=== PATIENT | male | born 1990 | race Two or more races ===

== ENCOUNTER 2025-01-10 09:51 | Inpatient (IN) | payer OTHER, MEDICAID ==
[~2025-01-10] VITALS: Ht 172.7 cm; Wt 91.6 kg
--- NOTE | 2025-01-10 12:26 | ED.PDOC ---
HPI Comments PMHx:Bipolar Disorder, Schizophrenic SHx:Denies any Pt has not taken Seroquel medication x4 months, Needs Latuda to sleep HPI: Poor Historian. 34-year-old male brought in from long-term accompanied by deputy officer for evaluation of elevated blood pressure. They said they can not help him there so they sent him to the ER. Patient was already in handcuffs. Patient according to the officer was arrested this morning for tear was threats. REVIEW OF SYSTEMS: CONSTITUTIONAL: Denies acute: fever, diaphoresis, chills, HEAD: Denies acute: headache, photophobia Eyes: Denies acute: Double vision, vision loss, eye pain, eye discharge. EARS: Denies acute: tinnitus, hearing loss, ear discharge, ear pain, THROAT: Denies acute: sore throat, swelling, difficulty swallowing , pain with swallowing, change in voice. NECK: Denies acute: neck pain, neck swelling, stiff neck. HEART: Denies acute : chest pain, palpitations, LUNGS: Denies acute: SOB, wheezing, cough, hemoptysis ABDOMEN: Denies acute: abdominal pain, Nausea, Vomiting, diarrhea, melena , hematemesis, hematochezia SKIN: Denies acute: rash, redness, lesions, itchiness. EXTREMITIES: Denies acute: calf pain, numbness, tingling, weakness, denies pain in extremity. Denies acute: Low back pain. Neuro: Denies acute: focal neurological deficit, motor or sensory focal neurological deficit, tremors, seizure like activity, confusion, dizziness, change in mental status, loss of bowel or bladder function, cauda equina like symptoms. : Denies acute: dysuria, hematuria, flank pain, increase in urinary frequency. PSYCH: Denies acute: hallucination, suicidal ideation, homicidal ideation. PHYSICAL EXAM: General: ----mild----acute distress, awake and alert. Head: normocephalic, atraumatic. Neck: supple, trachea is midline, no swelling. Throat: Normal phonation. Eyes:, no erythema, no purulent discharge, no proptosis, no icterus. Heart: regular rate, regular rhythm, no significant murmur appreciated. Lungs: no apparent respiratory distress, Able to speak in full sentences. No wheezing, no rhonchi, no crackles. No stridors Clear to auscultation bilaterally. Abdomen: non tender to palpation, non distended, soft, no guarding, no rebound, + bowel sounds. Neuro: Awake, Alert, oriented to name, self, situation, follows commands GCS=15. Speech is normal. Skin: no petechia, no purpura, no cyanosis, non-pale, not jaundice. Lower extremities: --no - Pitting edema no deformity, no focal swelling, no calf TTP. Makes eye contact. moves all four extremities. Face: no apparent facial droop. ED COURSE: Chief Complaint: High Blood Pressure Time Seen by MD: 12:20 Primary Care Provider: UNKNOWN Reviewed Notes: Nurses Notes, Medications, Allergies Allergies: Uncoded Allergies: grapefruit (Allergy, Unknown, 01/10/25) Home Meds Reported Medications Quetiapine Fumerate (Seroquel Xr) 200 Mg Tab, 200 MG PO QPM for 30 Days, MG 01/10/25 Lurasidone HCl (Lurasidone Hydrochloride) 80 Mg Tab, 1 TAB PO DAILY 01/10/25 Buspirone HCl (Buspirone Hydrochloride) 15 Mg Tab, 1 TAB PO TID 01/10/25 Information Source: Patient, Law Enforcement Mode of Arrival: EMS Severity: Moderate Past Medical History PAST MEDICAL HISTORY: Schizophrenia Past Medical History (Other): Bipolar Surgical History: Denies all surgeries Family History Family History: Reviewed,noncontributory to illness, Unknown Social History Smoker: Cigarettes Alcohol: Denies ETOH Use Drugs: Marijuana Lives In: Home Was a procedure done? Was a procedure done?: No CP Differential Dx Differential Diagnosis: N/A Differential Diagnosis: Other (DDX include renal disease, thyroid disease, electrolyte abnormality, increased salt intake, medications non-compliance, undiagnosed HTN, Hypertensive crisis, hypertensive urgency., drug toxicity.) X-Ray, Labs, Meds, VS Vital Signs Date Time Temp Pulse Resp B/P (MAP) Pulse Ox O2 Delivery O2 Flow Rate FiO2 01/10/25 15:00 150/100 01/10/25 14:26 166/112 01/10/25 14:20 98.4 122 17 166/112 (130) 98 98.4 4/24/25 09:57 98.0 106 18 171/100 (123) 98 98.0 Lab Test 01/10/25 15:04 01/10/25 13:10 01/10/25 12:42 01/10/25 12:17 Range/Units Troponin I High Sensitivity 6 8 9 </=54 ng/L Urine Color Yellow Yellow Urine Clarity Clear Clear Urine pH 5.5 5.0-9.0 Urine Specific [place] 1.026 1.001-1.035 Urine Protein 1+ H Negative Urine Ketones 4+ H Negative Urine Blood Trace H Negative /uL Urine Nitrite Negative Negative Urine Bilirubin Negative Negative Urine Urobilinogen Normal Negative mg/dL Urine Leukocyte Esterase Negative Negative /uL Urine RBC 4 0 - 3 /hpf Urine Microscopic WBC 1 0-3 /HPF Urine Squamous Epithelial Cells Few <5 /hpf Urine Bacteria None seen None Seen /hpf Urine Mucus Few None Seen Urine Glucose Normal Normal mg/dL Urine Opiates Screen Neg NEGATIVE Urine Fentanyl Screen Neg NEGATIVE Urine Barbiturates Screen Neg NEGATIVE Urine Phencyclidine Screen Neg NEGATIVE Urine Amphetamines Screen Neg NEGATIVE Urine Benzodiazepines Screen Neg NEGATIVE Urine Cocaine Screen Neg NEGATIVE Urine Cannabinoids Screen Pos NEGATIVE White Blood Count 11.5 H 4.4-10.8 10^3/uL Red Blood Count 5.97 H 4.5-5.90 10^6/uL Hemoglobin 17.1 13.5-17.5 g/dL Hematocrit 50.8 41.0-53.0 % Mean Corpuscular Volume 85.0 80.0-100.0 fL Mean Corpuscular Hemoglobin 28.6 28.0-32.0 pg Mean Corpuscular Hemoglobin Concent 33.7 32.0-36.0 g/dL Red Cell Distribution Width 14.1 11.8-14.3 % Platelet Count 270 140-450 10^3/uL Mean Platelet Volume 7.8 6.9-10.8 fL Neutrophils (%) (Auto) 73.9 37.0-80.0 % Lymphocytes (%) (Auto) 13.7 10.0-50.0 % Monocytes (%) (Auto) 11.7 0.0-12.0 % Eosinophils (%) (Auto) 0.3 0.0-7.0 % Basophils (%) (Auto) 0.4 0.0-2.0 % Neutrophils # (Auto) 8.5 1.6-8.6 10 ^3/uL Lymphocytes # (Auto) 1.6 0.4-5.4 10 ^3/uL Monocytes # (Auto) 1.4 H 0-1.3 10 ^3/uL Eosinophils # (Auto) 0 0-0.8 10 ^3/uL Basophils # (Auto) 0 0-0.2 10 ^3/uL Nucleated Red Blood Cells 0.0 % Sodium Level 138 136-145 mmol/L Potassium Level 3.4 L 3.5-5.1 mmol/L Chloride Level 107 98-107 mmol/L Carbon Dioxide Level 21 20-31 mmol/L Anion Gap 10 5-15 Blood Urea Nitrogen 11 9-23 mg/dL Creatinine 0.79 0.700-1.30 mg/dL Glomerular Filtration Rate Calc 120 >90 mL/min BUN/Creatinine Ratio 13.9 10.0-20.0 Serum Glucose 97 74-106 mg/dL Calcium Level 10.1 8.7-10.4 mg/dL Total Bilirubin 1.1 H 0.2-1.0 mg/dL Aspartate Amino Transferase (AST) 78 H 13-40 U/L Alanine Aminotransferase (ALT) 78 H 7-40 U/L Alkaline Phosphatase 105 46-116 U/L Creatine Kinase 1881 H 46-171 U/L Total Protein 7.9 5.7-8.2 g/dL Albumin 5.3 H 3.2-4.8 g/dL Current Medications Medications (Trade) Dose Ordered Sig/Kim Route Start Time Stop Time Status Last Admin Nitroglycerin (Ntrostat Sublingual) 0.4 mg ONCE ONCE SL 01/10/25 12:45 01/10/25 12:46 DC 01/10/25 14:26 Sodium Chloride 1,000 ml @ 1,000 mls/hr Q1H ONCE IV 01/10/25 13:30 01/10/25 14:29 DC 01/10/25 13:30 Sodium Chloride 1,000 ml @ 1,000 mls/hr Q1H ONCE IV 01/10/25 13:30 01/10/25 14:29 DC 01/10/25 13:30 Potassium Chloride (Klor-Con Tablet) 20 meq ONCE ONCE PO 01/10/25 15:45 01/10/25 16:07 DC 01/10/25 16:49 Sodium Chloride 1,000 ml @ 125 mls/hr Q8H IV 01/10/25 15:45 01/10/25 16:45 Ceftriaxone Sodium 50 ml @ 100 mls/hr DAILY@09 IV 01/10/25 15:45 01/10/25 16:41 Azithromycin 250 ml @ 125 mls/hr DAILY IV 01/10/25 15:45 01/10/25 16:49 Time of 1ST Reevaluation: 12:50 Reevaluation 1ST: Unchanged Patient Education/Counseling: Diagnosis, Treatment Family Education/Counseling: Other (Officer was present), No Family Present Comments Patient presented with the above HPI.--hypotension and psychiatric evaluation----workup was initiated. patient was found with the above mentioned diagnosis. the following medications were ordered: please refer to order lists of meds and tests obtained by myself Dr. Barker. Patient ED course and VS have been stabilized. Patient has been reassessed in the ED and remained in a stable condition. Pertinent incidental findings were discussed with the patient and/or family. Patient/family voices understanding and is agreeable with plan. Patient has been observed in the ED adequate length of time to insure improvement/stability. Escalation of care considered: Consideration of escalation to observation or admission Patient was ADMITTED to the medicine team for further evaluation and treatment of their presentation. All the reports of any imaging studies that were ordered by myself were reviewed by myself. Departure 1 Departure Time of Disposition: 13:31 Impression: Primary Impression: Rhabdomyolysis Additional Impression: Hypertensive urgency Disposition: ADMITTED INPATIENT Admit to: [facility] Condition: Guarded Discharged With: Self Critical Care Note Critical Care Time?: No Heart Score Heart Score: Heart Score Response (Comments) Value History N/A 0 EKG N/A 0 Age N/A 0 Risk Factors N/A 0 Troponin N/A 0 Total 0 I personally scribed for BLANCA BARKER DO ([email or web address]) on 01/10/25 at 12:26. Electronically submitted by Otto Guerrero ([email or web address]). BLANCA BARKER DO Jan 10, 2025 12:26
[2025-01-10 12:29] LABS: Basophils # (auto) 0 10 ^3/uL (0-0.2); Basophils % (auto) 0.4 % (0.0-2.0); Eosinophils # (auto) 0 10 ^3/uL (0-0.8); Eosinophils % (auto) 0.3 % (0.0-7.0); Hematocrit 50.8 % (41.0-53.0); Hemoglobin 17.1 g/dL (13.5-17.5); Lymphocytes # (auto) 1.6 10 ^3/uL (0.4-5.4); Lymphocytes % (auto) 13.7 % (10.0-50.0); Mean Corpuscular Hemoglobin 28.6 pg (28.0-32.0); Mean Corpuscular Hgb Conc. 33.7 g/dL (32.0-36.0); Monocytes # (auto) 1.4 10 ^3/uL (0-1.3); Monocytes % (auto) 11.7 % (0.0-12.0); Neutrophils # (auto) 8.5 10 ^3/uL (1.6-8.6); Neutrophils % (auto) 73.9 % (37.0-80.0); Platelet Count (auto) 270 10^3/uL (140-450); Red Blood Cells 5.97 10^6/uL (4.5-5.90); Red Cell Distribution Width 14.1 % (11.8-14.3); White Blood Cell 11.5 10^3/uL (4.4-10.8)
[2025-01-10 12:43] LABS: Urine Bacteria None Seen /hpf (None Seen)
[2025-01-10 12:45] LABS: Alanine Aminotransferase 78 U/L (7-40); Albumin 5.3 g/dL (3.2-4.8); Alkaline Phosphatase 105 U/L (46-116); Anion Gap 10 (5-15); Aspartate Aminotransferase 78 U/L (13-40); BUN/Creatinine Ratio 13.9 (10.0-20.0); Bilirubin, Total 1.1 mg/dL (0.2-1.0); Blood Urea Nitrogen 11 mg/dL (9-23); Calcium 10.1 mg/dL (8.7-10.4); Carbon Dioxide 21 mmol/L (20-31); Chloride 107 mmol/L (98-107); Glucose 97 mg/dL (74-106); Potassium 3.4 mmol/L (3.5-5.1); Sodium 138 mmol/L (136-145); Total Protein 7.9 g/dL (5.7-8.2)
[2025-01-10 12:56] LABS: Urine Blood TRACE /uL (Negative); Urine Clarity Clear (Clear); Urine Color Yellow (Yellow); Urine Mucus FEW (None Seen); Urine Protein, UAD 1+ (Negative); Urine Specific Gravity 1.026 (1.001-1.035); Urine Squamous Epithelial Cell FEW /hpf (<5); Urine Urobilinogen Normal (Negative); Urine WBC 1 /HPF (0-3); Urine pH 5.5 (5.0-9.0)
[2025-01-10 13:02] LABS: Cannabinoid Screen, Urine Pos (NEGATIVE)
[2025-01-10 13:03] LABS: Amphetamine Screen, Urine Neg (NEGATIVE); Barbiturate Scree,Urine Neg (NEGATIVE); Benzodiazephine Screen, Urine Neg (NEGATIVE); Cocaine Screen, Urine Neg (NEGATIVE); Opiate Scree,Urine Neg (NEGATIVE); Phencyclidine Screen, Urine Neg (NEGATIVE)
[2025-01-10] MEDS: SODIUM CHLORIDE 0.9% 1,000 ML IV ONE ×2 (13:30)
[2025-01-10] MEDS: NITROGLYCERIN 0.4 MG SL TAB SL ONE (14:26)
[2025-01-10] MEDS ORDERED: ACETAMINOPHEN 325 MG TAB PO PRN (15:45)
[2025-01-10] MEDS ORDERED: ONDANSETRON HCL 4 MG/2 ML VIAL IV PRN (15:45)
[2025-01-10] MEDS ORDERED: hydrALAZINE HCL 20 MG/ML VL IV PRN (15:45)
[2025-01-10] MEDS ORDERED: LURA80TA3 PO (15:46)
[2025-01-10] MEDS ORDERED: BUSP15TA90 PO (15:46)
--- NOTE | 2025-01-10 16:02 | DVHHP2 ---
History of Present Illness Reason for Visit: Hypertension urgency History of Present Illness Wilmer Doyle is a 34-year-old male with past medical history of manic disorder, schizophrenia, and bipolar disorder who presents to the ED with elevated blood pressure x3 days. Patient reports that he is in need of Seroquel and currently resides in the custodial system at [facility] in [place]. Patient reports that he is allergic to grapefruit but does not know the reaction. Patient states that his blood pressure has been high for the last 3 days and currently does not take anything. Patient does report that he drinks beer twice a week, smokes a pack of cigarettes daily, and uses marijuana. Patient denies any chest pain, shortness of breath, fever, chills, lightheadedness, weakness, dizziness, abdominal pain, nausea, vomiting, diarrhea, recent ingestion of spoiled food, or recent trauma or injury. Psych: Bipolar, Schizophrenia Past Medical History Manic disorder Past Surgical History: None Family History: DM, Other (Mom with diabetes) Smoke: 1 pack per day ALCOHOL: occassional Drugs: Marijuana Lives: Other Domestic Violence: Neg Review of Systems Constitutional: Yes: Other Allergies: Coded Allergies: NO KNOWN ALLERGIES (Unverified , 01/10/25) Exam Vital Signs Vital Signs Date Time Temp Pulse Resp B/P (MAP) Pulse Ox O2 Delivery O2 Flow Rate FiO2 01/10/25 15:00 150/100 01/10/25 14:20 98.4 122 17 98 98.4 General Appearance: Alert, Oriented X3, Cooperative, No acute distress HEENT: Atraumatic, PERRLA, EOMI, Mucous membr. moist/pink Respiratory: Clear to auscultation, Normal air movement Cardiovascular: Normal S1, Normal S2 Abdominal: Normal bowel sounds, Soft, No tenderness, No hepatospenomegaly, No masses Extremities: No clubbing, No cyanosis, Normal pulses Skin: No significant lesion Neuro: Normal speech, Strength at 5/5 X4 ext, Normal tone, Sensation intact Psych/Mental Status: Mental status NL, Mood NL Labs/Xrays Labs Test 01/10/25 15:04 01/10/25 12:42 01/10/25 12:17 Range/Units Troponin I High Sensitivity 6 </=54 ng/L Urine Color Yellow Yellow Urine Clarity Clear Clear Urine pH 5.5 5.0-9.0 Urine Specific [place] 1.026 1.001-1.035 Urine Protein 1+ H Negative Urine Ketones 4+ H Negative Urine Blood Trace H Negative /uL Urine Nitrite Negative Negative Urine Bilirubin Negative Negative Urine Urobilinogen Normal Negative mg/dL Urine Leukocyte Esterase Negative Negative /uL Urine RBC 4 0 - 3 /hpf Urine Microscopic WBC 1 0-3 /HPF Urine Squamous Epithelial Cells Few <5 /hpf Urine Bacteria None seen None Seen /hpf Urine Mucus Few None Seen Urine Glucose Normal Normal mg/dL Urine Opiates Screen Neg NEGATIVE Urine Fentanyl Screen Neg NEGATIVE Urine Barbiturates Screen Neg NEGATIVE Urine Phencyclidine Screen Neg NEGATIVE Urine Amphetamines Screen Neg NEGATIVE Urine Benzodiazepines Screen Neg NEGATIVE Urine Cocaine Screen Neg NEGATIVE Urine Cannabinoids Screen Pos NEGATIVE White Blood Count 11.5 H 4.4-10.8 10^3/uL Red Blood Count 5.97 H 4.5-5.90 10^6/uL Hemoglobin 17.1 13.5-17.5 g/dL Hematocrit 50.8 41.0-53.0 % Mean Corpuscular Volume 85.0 80.0-100.0 fL Mean Corpuscular Hemoglobin 28.6 28.0-32.0 pg Mean Corpuscular Hemoglobin Concent 33.7 32.0-36.0 g/dL Red Cell Distribution Width 14.1 11.8-14.3 % Platelet Count 270 140-450 10^3/uL Mean Platelet Volume 7.8 6.9-10.8 fL Neutrophils (%) (Auto) 73.9 37.0-80.0 % Lymphocytes (%) (Auto) 13.7 10.0-50.0 % Monocytes (%) (Auto) 11.7 0.0-12.0 % Eosinophils (%) (Auto) 0.3 0.0-7.0 % Basophils (%) (Auto) 0.4 0.0-2.0 % Neutrophils # (Auto) 8.5 1.6-8.6 10 ^3/uL Lymphocytes # (Auto) 1.6 0.4-5.4 10 ^3/uL Monocytes # (Auto) 1.4 H 0-1.3 10 ^3/uL Eosinophils # (Auto) 0 0-0.8 10 ^3/uL Basophils # (Auto) 0 0-0.2 10 ^3/uL Nucleated Red Blood Cells 0.0 % Sodium Level 138 136-145 mmol/L Potassium Level 3.4 L 3.5-5.1 mmol/L Chloride Level 107 98-107 mmol/L Carbon Dioxide Level 21 20-31 mmol/L Anion Gap 10 5-15 Blood Urea Nitrogen 11 9-23 mg/dL Creatinine 0.79 0.700-1.30 mg/dL Glomerular Filtration Rate Calc 120 >90 mL/min BUN/Creatinine Ratio 13.9 10.0-20.0 Serum Glucose 97 74-106 mg/dL Calcium Level 10.1 8.7-10.4 mg/dL Total Bilirubin 1.1 H 0.2-1.0 mg/dL Aspartate Amino Transferase (AST) 78 H 13-40 U/L Alanine Aminotransferase (ALT) 78 H 7-40 U/L Alkaline Phosphatase 105 46-116 U/L Creatine Kinase 1881 H 46-171 U/L Total Protein 7.9 5.7-8.2 g/dL Albumin 5.3 H 3.2-4.8 g/dL Assessment/Plan Assessment/Plan Assessment Hypertension emergency Leukocytosis rule out pneumonitis versus pneumonia versus other etiology Hyperkalemia Marijuana use Alcohol use Tobacco use Hyperbilirubinemia History of manic disorder History of schizophrenia History of bipolar disorder Plan Admit to tele Antihypertensives Replete lytes Elevated CK IV fluids UA NS 2 L given ED Nitro given ED UDS Troponin EKG IV fluids IV antibiotics-ceftriaxone + azithromycin Chest x-ray ordered Patient currently resides in custodial Home medications reconciled DVT prophylaxis-SCDs PUD prophylaxis-not indicated no history of GERD or GI bleed Discussed plan of care with patient and nurse Counseled patient on cessation of polysubstance abuse Counseled patient on cessation of tobacco use Counseled patient on cessation of alcohol use Plan discussed with: Patient My Orders Orders - CONNER VARGAS E [employer] SPECIALIST Procedure Category Date Status Time Potassium Er Tablet PHA 01/10/25 Logged (Klor-Con Tablet) 15:45 Sodium Chloride 0.9% PHA 01/10/25 Logged 15:45 Ceftriaxone 1gm/50ml PHA 01/10/25 Logged D5w (Rocephin) 15:45 Azithromycin 500mg/ PHA 01/10/25 Logged 250ml (Zithromax 50 15:45 Hydralazine Injection PHA 01/10/25 Logged (Apresoline Inject 15:45 Admit ADMIT 01/10/25 Transmitted 15:41 Allergies [place] 01/10/25 In Process 15:41 Code Status CODE 01/10/25 Transmitted 15:41 Ondansetron Hcl PHA 01/10/25 Logged (Zofran) 15:45 Complete Blood Count LAB 01/11/25 Verified 04:00 Comprehensive LAB 01/11/25 Verified Metabolic Panel 04:00 Cardiac DIET 01/10/25 Transmitted Diet-2gna,Lofat,Lochol Dinner Acetaminophen Tablet PHA 01/10/25 Logged (Tylenol Tablet) 15:45 Sequential [place] 01/10/25 In Process Compression Device (Nf) Buspirone Hcl PHA 01/10/25 Verified (Buspirone Hydrochlor 22:00 (Nf) Lurasidone Hcl PHA 01/11/25 Verified (Lurasidone Hydrochl 10:00 Date of Service: Jan 10, 2025 Billing Provider: CONNER VARGAS Common Visit Codes: [id number] INP/OBS CARE (HIGH) CONNER VARGAS Jan 10, 2025 16:02
--- NOTE | 2025-01-10 16:13 | DVH ---
CHEST RADIOGRAPH Indication: r/o pna Technique: Single frontal view of the chest was obtained COMPARISON: None FINDINGS: Lines and Tubes: None Lungs: Clear Pleura: No effusion. No pneumothorax. Cardiomediastinal contours: Unremarkable Bones: Unremarkable IMPRESSION: 1. No acute disease.
[2025-01-10] MEDS: cefTRIAXone 1GM/50ML D5W 50 ML IV SCH (16:41)
[2025-01-10] MEDS: SODIUM CHLORIDE 0.9% 1,000 ML IV SCH (16:45)
[2025-01-10] MEDS: POTASSIUM CHL 20 Meq TABLET PO ONE (16:49)
[2025-01-10] MEDS: AZITHROMYCIN 500MG/ 250ML 250 ML IV SCH (16:49)
[2025-01-10] MEDS: busPIRone HCL 10 MG TAB PO SCH (16:51)
[2025-01-10 17:02] VITALS: PULSE 122; RESP 17; O2SAT 98
[2025-01-10 18:44] VITALS: RESP 17; O2SAT 98
[2025-01-10 18:50] VITALS: BP 156/101; PULSE 106; RESP 17; TEMP 97.9; O2SAT 98
[2025-01-10 18:56] VITALS: BP 156/101; PULSE 106; RESP 17; TEMP 97.9; O2SAT 98
[2025-01-10] MEDS ORDERED: QUET200T4 PO (19:03)
[2025-01-10 20:00] VITALS: PULSE 103
[2025-01-10 21:00] VITALS: BP 154/99; PULSE 111; RESP 18; TEMP 97.7; O2SAT 96
[2025-01-11] VITALS (7 sets, daily range): BP systolic 135–153; BP diastolic 93–99; PULSE 86–115; RESP 18–20; TEMP 97.3–98.3; O2SAT 94–98
[2025-01-11 06:55] LABS: Basophils # (auto) 0.1 10 ^3/uL (0-0.2); Basophils % (auto) 0.5 % (0.0-2.0); Eosinophils # (auto) 0 10 ^3/uL (0-0.8); Eosinophils % (auto) 0.2 % (0.0-7.0); Hemoglobin 15.6 g/dL (13.5-17.5); Lymphocytes # (auto) 1.6 10 ^3/uL (0.4-5.4); Lymphocytes % (auto) 14.9 % (10.0-50.0); Mean Corpuscular Hgb Conc. 33.8 g/dL (32.0-36.0); Mean Corpuscular Volume 85.7 fL (80.0-100.0); Monocytes # (auto) 1.2 10 ^3/uL (0-1.3); Monocytes % (auto) 11.7 % (0.0-12.0); Neutrophils # (auto) 7.7 10 ^3/uL (1.6-8.6); Neutrophils % (auto) 72.7 % (37.0-80.0); Nucleated Red Blood Cells % 0.2 %; Platelet Count (auto) 259 10^3/uL (140-450); Red Blood Cells 5.37 10^6/uL (4.5-5.90); Red Cell Distribution Width 14.4 % (11.8-14.3); White Blood Cell 10.6 10^3/uL (4.4-10.8)
[2025-01-11 07:09] LABS: Albumin 4.5 g/dL (3.2-4.8); Alkaline Phosphatase 88 U/L (46-116); Anion Gap 8 (5-15); BUN/Creatinine Ratio 17.1 (10.0-20.0); Blood Urea Nitrogen 12 mg/dL (9-23); Calcium 9.3 mg/dL (8.7-10.4); Carbon Dioxide 23 mmol/L (20-31); Glucose 92 mg/dL (74-106); Sodium 141 mmol/L (136-145); Total Protein 6.6 g/dL (5.7-8.2)
[2025-01-11 07:33] LABS: Alanine Aminotransferase 64 U/L (7-40); Aspartate Aminotransferase 59 U/L (13-40); Chloride 110 mmol/L (98-107); Potassium 3.4 mmol/L (3.5-5.1)
[2025-01-11] MEDS: LURASIDONE HYDROCHLORIDE 80 MG PO SCH (10:00)
--- NOTE | 2025-01-11 13:30 | DVHPN2 ---
Reviewed: Care Plan, H&P, Labs, Medications, Previous Orders, Radiology Changes from previous H/P or p: No Changes Objective Vitals Vital Signs Date Time Temp Pulse Resp B/P (MAP) Pulse Ox O2 Delivery O2 Flow Rate FiO2 01/11/25 09:00 97.3 102 20 153/99 (117) 97 97.3 01/11/25 08:00 Room Air* 0 21 Intake/Output Intake and Output 01/11/25 07:00 Intake Total 2600 ml Balance 2600 ml Intake Oral 300 ml IV Total 2000 ml Tube Feeding 300 ml # Voids 2 Medications Current Medications Medications Dose Ordered Sig/Kim Route Start Time Stop Time Status Last Admin Dose Admin Sodium Chloride 1,000 ml @ 125 mls/hr Q8H IV 01/10/25 15:45 01/10/25 16:45 125 MLS/HR Ceftriaxone Sodium 50 ml @ 100 mls/hr DAILY@09 IV 01/10/25 15:45 01/10/25 16:41 100 MLS/HR Azithromycin 250 ml @ 125 mls/hr DAILY IV 01/10/25 15:45 01/10/25 16:49 125 MLS/HR Hydralazine HCl 10 mg Q6HP PRN IV 01/10/25 15:45 Ondansetron HCl 4 mg Q4HP PRN IV 01/10/25 15:45 Acetaminophen 650 mg Q6HP PRN PO 01/10/25 15:45 Buspirone HCl 15 mg TID PO 01/10/25 16:12 01/11/25 05:31 15 MG Patient Own Medication 1 tab DAILY PO 01/11/25 10:00 Laboratory Results Laboratory Tests 01/11/25 05:10 Chemistry Test 01/11/25 05:10 Albumin 4.5 g/dL (3.2-4.8) Calcium Level 9.3 mg/dL (8.7-10.4) Total Protein 6.6 g/dL (5.7-8.2) LFT Test 01/11/25 05:10 Alanine Aminotransferase (ALT) 64 U/L (7-40) H Alkaline Phosphatase 88 U/L (46-116) Aspartate Amino Transferase (AST) 59 U/L (13-40) H Total Bilirubin 1.0 mg/dL (0.2-1.0) Urinalysis Test 01/10/25 12:42 Urine Color Yellow (Yellow) Urine Clarity Clear (Clear) Urine pH 5.5 (5.0-9.0) Urine Specific [place] 1.026 (1.001-1.035) Urine Protein 1+ (Negative) H Urine Ketones 4+ (Negative) H Urine Blood Trace /uL (Negative) H Urine Nitrite Negative (Negative) Urine Bilirubin Negative (Negative) Urine Urobilinogen Normal mg/dL (Negative) Urine Leukocyte Esterase Negative /uL (Negative) Urine RBC 4 /hpf (0 - 3) Urine Microscopic WBC 1 /HPF (0-3) Urine Squamous Epithelial Cells Few /hpf (<5) Urine Bacteria None seen /hpf (None Seen) Urine Mucus Few (None Seen) Urine Glucose Normal mg/dL (Normal) Labs and/or images reviewed: Labs reviewed by me, Image(s) reviewed by me Assessment/Plan Assessment/Plan Hypertension emergency Leukocytosis rule out pneumonitis versus pneumonia versus other etiology: Rocephin azithromycin Hyperkalemia Marijuana use Alcohol use Tobacco use Hyperbilirubinemia Manic disorder Schizophrenia Bipolar Patient is from [facility] Plan discussed with: Patient Date of Service: Jan 11, 2025 Billing Provider: ROB MARTINS MD Common Visit Codes: [id number] INP/OBS CARE(HIGH) ROB MARTINS MD Jan 11, 2025 13:30
[2025-01-11] MEDS ORDERED: cloNIDine HCL 0.1 MG TAB PO PRN (13:45)
[2025-01-12 05:00] VITALS: BP 146/95; PULSE 106; RESP 19; TEMP 97.8; O2SAT 94
[2025-01-12 09:12] VITALS: BP 133/75; PULSE 102; RESP 21; TEMP 97.7; O2SAT 96
--- NOTE | 2025-01-12 09:41 | DVHPN2 ---
Reviewed: Care Plan, H&P, Labs, Medications, Previous Orders, Radiology Changes from previous H/P or p: No Changes Objective Vitals Vital Signs Date Time Temp Pulse Resp B/P (MAP) Pulse Ox O2 Delivery O2 Flow Rate FiO2 01/12/25 09:12 97.7 102 21 133/75 (94) 96 97.7 01/11/25 20:00 Room Air* 0 21 Intake/Output Intake and Output 01/12/25 07:00 Intake Total 1440 ml Output Total 500 ml Balance 940 ml Intake Oral 1440 ml Output Other 500 ml # Voids 3 # Bowel Movements 1 Medications Current Medications Medications Dose Ordered Sig/Kim Route Start Time Stop Time Status Last Admin Dose Admin Sodium Chloride 1,000 ml @ 125 mls/hr Q8H IV 01/10/25 15:45 01/10/25 16:45 125 MLS/HR Ceftriaxone Sodium 50 ml @ 100 mls/hr DAILY@09 IV 01/10/25 15:45 01/10/25 16:41 100 MLS/HR Azithromycin 250 ml @ 125 mls/hr DAILY IV 01/10/25 15:45 01/10/25 16:49 125 MLS/HR Hydralazine HCl 10 mg Q6HP PRN IV 01/10/25 15:45 Ondansetron HCl 4 mg Q4HP PRN IV 01/10/25 15:45 Acetaminophen 650 mg Q6HP PRN PO 01/10/25 15:45 Buspirone HCl 15 mg TID PO 01/10/25 16:12 01/12/25 05:42 15 MG Patient Own Medication 1 tab DAILY PO 01/11/25 10:00 Clonidine HCl 0.2 mg Q6HP PRN PO 01/11/25 13:45 Laboratory Results Laboratory Tests 01/11/25 05:10 Urinalysis Test 01/10/25 12:42 Urine Color Yellow (Yellow) Urine Clarity Clear (Clear) Urine pH 5.5 (5.0-9.0) Urine Specific [place] 1.026 (1.001-1.035) Urine Protein 1+ (Negative) H Urine Ketones 4+ (Negative) H Urine Blood Trace /uL (Negative) H Urine Nitrite Negative (Negative) Urine Bilirubin Negative (Negative) Urine Urobilinogen Normal mg/dL (Negative) Urine Leukocyte Esterase Negative /uL (Negative) Urine RBC 4 /hpf (0 - 3) Urine Microscopic WBC 1 /HPF (0-3) Urine Squamous Epithelial Cells Few /hpf (<5) Urine Bacteria None seen /hpf (None Seen) Urine Mucus Few (None Seen) Urine Glucose Normal mg/dL (Normal) Labs and/or images reviewed: Labs reviewed by me, Image(s) reviewed by me Assessment/Plan Assessment/Plan Hypertensive emergency Leukocytosis rule out pneumonitis versus pneumonia versus other etiology: Rocephin azithromycin Hyperkalemia Marijuana use Alcohol use Tobacco use Hyperbilirubinemia Manic disorder Schizophrenia Bipolar: Continue home medication Patient is from [facility] Plan discussed with: Patient My Orders Orders - ROB MARTINS MD Procedure Category Date Status Time Clonidine Hcl Tablet PHA 01/11/25 In Process (Catapres Tablet) 13:45 Date of Service: Jan 12, 2025 Billing Provider: ROB MARTINS MD Common Visit Codes: [id number] INP/OBS CARE(HIGH) ROB MARTINS MD Jan 12, 2025 09:41
[2025-01-12] MEDS: METOPROLOL TARTRATE 50 MG TAB PO SCH (10:00)
--- NOTE | 2025-01-12 10:01 | DVHPN2 ---
Reviewed: Care Plan, H&P, Labs, Medications, Previous Orders, Radiology Changes from previous H/P or p: No Changes Objective Vitals Vital Signs Date Time Temp Pulse Resp B/P (MAP) Pulse Ox O2 Delivery O2 Flow Rate FiO2 01/12/25 09:12 97.7 102 21 133/75 (94) 96 97.7 01/11/25 20:00 Room Air* 0 21 Intake/Output Intake and Output 01/12/25 07:00 Intake Total 1440 ml Output Total 500 ml Balance 940 ml Intake Oral 1440 ml Output Other 500 ml # Voids 3 # Bowel Movements 1 Medications Current Medications Medications Dose Ordered Sig/Kim Route Start Time Stop Time Status Last Admin Dose Admin Sodium Chloride 1,000 ml @ 125 mls/hr Q8H IV 01/10/25 15:45 01/10/25 16:45 125 MLS/HR Ceftriaxone Sodium 50 ml @ 100 mls/hr DAILY@09 IV 01/10/25 15:45 01/10/25 16:41 100 MLS/HR Azithromycin 250 ml @ 125 mls/hr DAILY IV 01/10/25 15:45 01/10/25 16:49 125 MLS/HR Hydralazine HCl 10 mg Q6HP PRN IV 01/10/25 15:45 Ondansetron HCl 4 mg Q4HP PRN IV 01/10/25 15:45 Acetaminophen 650 mg Q6HP PRN PO 01/10/25 15:45 Buspirone HCl 15 mg TID PO 01/10/25 16:12 01/12/25 05:42 15 MG Patient Own Medication 1 tab DAILY PO 01/11/25 10:00 Clonidine HCl 0.2 mg Q6HP PRN PO 01/11/25 13:45 Metoprolol Tartrate 50 mg BID PO 01/12/25 10:00 UNV Laboratory Results Laboratory Tests 01/11/25 05:10 Urinalysis Test 01/10/25 12:42 Urine Color Yellow (Yellow) Urine Clarity Clear (Clear) Urine pH 5.5 (5.0-9.0) Urine Specific [place] 1.026 (1.001-1.035) Urine Protein 1+ (Negative) H Urine Ketones 4+ (Negative) H Urine Blood Trace /uL (Negative) H Urine Nitrite Negative (Negative) Urine Bilirubin Negative (Negative) Urine Urobilinogen Normal mg/dL (Negative) Urine Leukocyte Esterase Negative /uL (Negative) Urine RBC 4 /hpf (0 - 3) Urine Microscopic WBC 1 /HPF (0-3) Urine Squamous Epithelial Cells Few /hpf (<5) Urine Bacteria None seen /hpf (None Seen) Urine Mucus Few (None Seen) Urine Glucose Normal mg/dL (Normal) Labs and/or images reviewed: Labs reviewed by me, Image(s) reviewed by me Assessment/Plan Assessment/Plan Hypertensive emergency resolved metoprolol Leukocytosis rule out pneumonitis versus pneumonia versus other etiology: Rocephin azithromycin Hyperkalemia Marijuana use Alcohol use Tobacco use Hyperbilirubinemia Manic disorder Schizophrenia : latuda Bipolar: Continue home medication Latuda Patient is from [facility] Patient feels better and being discharged back to retirement Plan discussed with: Patient My Orders Orders - ROB MARTINS MD Procedure Category Date Status Time Clonidine Hcl Tablet PHA 01/11/25 In Process (Catapres Tablet) 13:45 Metoprolol Tartrate PHA 01/12/25 Logged Tablet (Lopressor Ta 10:00 Discharge DISCHARGE 01/12/25 Transmitted 09:51 Date of Service: Jan 12, 2025 Billing Provider: ROB MARTINS MD Common Visit Codes: [id number] INP/OBS CARE(HIGH) ROB MARTINS MD Jan 12, 2025 10:01
--- NOTE | 2025-01-12 10:04 | DVHDS2 ---
Discharge Summary Date of Admission Jan 10, 2025 at 15:48 Date of Discharge: Jan 12, 2025 Admitting Diagnosis Elevated blood pressure Wounds: None Labs/Diagnostic Data: Laboratory Results Test 01/11/25 05:10 01/10/25 15:04 01/10/25 12:42 01/10/25 12:17 White Blood Count 10.6 10^3/uL (4.4-10.8) Red Blood Count 5.37 10^6/uL (4.5-5.90) Hemoglobin 15.6 g/dL (13.5-17.5) Hematocrit 46.0 % (41.0-53.0) Mean Corpuscular Volume 85.7 fL (80.0-100.0) Mean Corpuscular Hemoglobin 29.0 pg (28.0-32.0) Mean Corpuscular Hemoglobin Concent 33.8 g/dL (32.0-36.0) Red Cell Distribution Width 14.4 % (11.8-14.3) Platelet Count 259 10^3/uL (140-450) Mean Platelet Volume 8.7 fL (6.9-10.8) Neutrophils (%) (Auto) 72.7 % (37.0-80.0) Lymphocytes (%) (Auto) 14.9 % (10.0-50.0) Monocytes (%) (Auto) 11.7 % (0.0-12.0) Eosinophils (%) (Auto) 0.2 % (0.0-7.0) Basophils (%) (Auto) 0.5 % (0.0-2.0) Neutrophils # (Auto) 7.7 10 ^3/uL (1.6-8.6) Lymphocytes # (Auto) 1.6 10 ^3/uL (0.4-5.4) Monocytes # (Auto) 1.2 10 ^3/uL (0-1.3) Eosinophils # (Auto) 0 10 ^3/uL (0-0.8) Basophils # (Auto) 0.1 10 ^3/uL (0-0.2) Nucleated Red Blood Cells 0.2 % Sodium Level 141 mmol/L (136-145) Potassium Level 3.4 mmol/L (3.5-5.1) Chloride Level 110 mmol/L (98-107) Carbon Dioxide Level 23 mmol/L (20-31) Anion Gap 8 (5-15) Blood Urea Nitrogen 12 mg/dL (9-23) Creatinine 0.70 mg/dL (0.700-1.30) Glomerular Filtration Rate Calc 125 mL/min (>90) BUN/Creatinine Ratio 17.1 (10.0-20.0) Serum Glucose 92 mg/dL (74-106) Calcium Level 9.3 mg/dL (8.7-10.4) Total Bilirubin 1.0 mg/dL (0.2-1.0) Aspartate Amino Transferase (AST) 59 U/L (13-40) Alanine Aminotransferase (ALT) 64 U/L (7-40) Alkaline Phosphatase 88 U/L (46-116) Total Protein 6.6 g/dL (5.7-8.2) Albumin 4.5 g/dL (3.2-4.8) Troponin I High Sensitivity 6 ng/L (</=54) Urine Color Yellow (Yellow) Urine Clarity Clear (Clear) Urine pH 5.5 (5.0-9.0) Urine Specific [place] 1.026 (1.001-1.035) Urine Protein 1+ (Negative) Urine Ketones 4+ (Negative) Urine Blood Trace /uL (Negative) Urine Nitrite Negative (Negative) Urine Bilirubin Negative (Negative) Urine Urobilinogen Normal mg/dL (Negative) Urine Leukocyte Esterase Negative /uL (Negative) Urine RBC 4 /hpf (0 - 3) Urine Microscopic WBC 1 /HPF (0-3) Urine Squamous Epithelial Cells Few /hpf (<5) Urine Bacteria None seen /hpf (None Seen) Urine Mucus Few (None Seen) Urine Glucose Normal mg/dL (Normal) Urine Opiates Screen Neg (NEGATIVE) Urine Fentanyl Screen Neg (NEGATIVE) Urine Barbiturates Screen Neg (NEGATIVE) Urine Phencyclidine Screen Neg (NEGATIVE) Urine Amphetamines Screen Neg (NEGATIVE) Urine Benzodiazepines Screen Neg (NEGATIVE) Urine Cocaine Screen Neg (NEGATIVE) Urine Cannabinoids Screen Pos (NEGATIVE) Creatine Kinase 1881 U/L (46-171) Other Laboratory Tests 01/11/25 05:10 Brief Hx & Hospital Course: 34-year-old male with a history of manic disorder schizophrenia bipolar on Latuda buspirone history of alcohol abuse tobacco abuse marijuana abuse burden from the assisted pressure. Blood pressure was in the range of 170 treated with clonidine and metoprolol also found to have mild leukocytosis secondary to possible pneumonitis treated with Rocephin azithromycin. At the time of discharge is afebrile on room air blood pressure normal discharged back to the assisted. Handwritten prescription for azithromycin Latuda buspirone and metoprolol given to the guard Consults/Reason for consult None Operations or Procedures None Condition at Discharge: Fair Final Diagnosis/Problems List Hypertensive emergency Leukocytosis rule out pneumonitis versus pneumonia versus other etiology: Rocephin azithromycin Hyperkalemia Marijuana use Alcohol use Tobacco use Hyperbilirubinemia Manic disorder Schizophrenia : Latuda Bipolar: Continue home medication Discharge Disposition: Nursing Home Discharge Instruct/Medications Diet: Cardiac 2g Na,low cholest Activity: No Restrictions, As Tolerated Follow Up/Referral: f/u with assisted doctor Medications: latuda metoprolol azithromucin buspirone handwritten rx given to guard 35 (Time Taken for discharge summary 35 minutes) Discharge Statement: "Patient was advised to return to the ER or call 911 if any headaches, dizziness, shortness of breath, chest pain, abdominal pain, bleeding, fevers, or worsening of medical condition. Patient was counseled about treatment plan, medications, possible side effects, patientverbalized understanding. All questions were answered to the best of my ability. This discharge took greater then 30 minutes in planning, reviewing documentation, counseling the patient, and discussing with other team members." ASSESSMENT ASSESSMENT Hospital Course Improved Assessment Hypertensive emergency Leukocytosis rule out pneumonitis versus pneumonia versus other etiology: Rocephin azithromycin Hyperkalemia Marijuana use Alcohol use Tobacco use Hyperbilirubinemia Manic disorder Schizophrenia : Latuda Bipolar: Continue home medication Date of Service: Jan 12, 2025 Billing Provider: ROB MARTINS MD Common Visit Codes: 32375-KZH/OBS DISCH DAY >30min ROB MARTINS MD Jan 12, 2025 10:04
[2025-01-12 10:07] VITALS: BP 133/75; PULSE 102; RESP 21; TEMP 97.7; O2SAT 96
[2025-01-12 12:56] VITALS: BP 135/90; PULSE 100; RESP 19; TEMP 98.7; O2SAT 96
== END 2025-01-12 14:30 | DRG 304 ==
LOC: EDBD 09:51 → ER 09:51 → EEVIPCON 15:48 → OVERFLOW 15:48 → TELE-EAST 18:18
PROVIDERS: ADMIT Family Medicine; ATTEND Family Medicine
DX: I16.1 Hypertensive emergency (principal); J15.69 Pneumonia due to other Gram-negative bacteria; J15.9 Unspecified bacterial pneumonia; M62.82 Rhabdomyolysis; J98.4 Other disorders of lung; E87.5 Hyperkalemia; F20.9 Schizophrenia, unspecified; F31.9 Bipolar disorder, unspecified; D72.829 Elevated white blood cell count, unspecified; F17.210 Nicotine dependence, cigarettes, uncomplicated; E80.6 Other disorders of bilirubin metabolism; F12.90 Cannabis use, unspecified, uncomplicated; F10.90 Alcohol use, unspecified, uncomplicated; Z91.018 Allergy to other foods; Z83.3 Family history of diabetes mellitus; Z79.899 Other long term (current) drug therapy; Y90.9 Presence of alcohol in blood, level not specified
CPT/HCPCS: 36415; 71045; 80053; 80307; 81001; 82550; 84484; 85025; 87081; G0378